=== PATIENT | male | born 1955 | race Caucasian/White ===

== ENCOUNTER 2023-08-25 11:18 | Emergency (ER) | payer MEDICARE, SELFPAY ==
[2023-08-25 11:28] VITALS: BP 136/73
--- NOTE | 2023-08-25 12:38 | ED.GENMED ---
History of Present Illness
General
Chief Complaint: Musculo-Skeletal Complaint
Source: patient
Exam Limitations: none
Time Seen by Provider: 08/25/23 12:09
Travel History
Have you had any contact with someone who has COVID-19?: No
Do you have any symptoms of coronavirus? Fever > 100 degrees, chills, cough, shortness of breath, sore throat, loss of taste or smell, muscle aches, or headache?: No
History of Present Illness
History of Present Illness:
Patient hit his anterior chest yesterday evening. Also stubbed his toe but is not want his toe evaluated. Some pain with breathing. No shortness of breath no neck pain no head injury no other complaints
Past History
Past History
ED Past Medical History: Hypercholesterolemia
ED Past Surgical History: None
Patient has exhibited threatening behavior?: No
Social History
Tobacco: Non-smoker
Living: with family
Employment: Employed
Phy Exam
Physical Exam
Physical Exam:
TRAUMA EXAM:
VITAL SIGNS: Vital signs reviewed, cooperative
DISTRESS: No active disease
FACE AND SCALP: No scalp or facial trauma
NECK: Supple nontender
RESPIRATORY: No distress, breath sounds normal, tenderness left anterior mid chest wall. No crepitus no ecchymosis
CARDIAC: No murmur, pulses equal and strong
ABDOMEN: Soft nontender
SKIN: Skin intact
NEUROLOGICAL: Alert, oriented, no motor deficits
PSYCH: Mood affect normal
Course
Orders/Labs/Results
Orders:
Orders
08/25/23 11:37
Chest [CR Chest - 2 Views ] Urgent
Comment:
Reason For Exam: pain injury
Vital Signs
Initial and Last Documented VS:
Initial Vital Signs
Temp Pulse Resp BP Pulse Ox
98.0 F 53 16 136/73 96
08/25/23 11:28 08/25/23 11:28 08/25/23 11:28 08/25/23 11:28 08/25/23 11:28
Last Documented Vital Signs
Temp Pulse Resp BP Pulse Ox
98.0 F 53 16 136/73 96
08/25/23 11:28 08/25/23 11:28 08/25/23 11:28 08/25/23 11:28 08/25/23 11:28
*Radiology
Radiology exam reviewed: radiology read reviewed (Negative)
*Pulse Oximetry
Patient hypoxic: no
*Critical Care Note
Total Time (30-74mins, 75-104mins- exclusive of procedures): Not Applicable
Update Note
Update Note:
Discussed rib series versus chest x-ray. Offered rib series although would not blade changer. Patient is comfortable with holding on this test.
ED Attending Note
-
Portions of this chart may have been created with voice recognition software.� Occasional wrong word or��sound alike� substitutions may have occurred due to the inherent limitations of voice recognition software.
Discharge Plan
Departure
Patient Disposition: Home (Routine Discharge)
Date of Disposition: 08/25/23
Time of Disposition: 12:42
Patient with high blood pressure during this ER visit?: Yes
Discharge Problem:
Blunt chest trauma
Instructions: Blunt Chest Trauma (DC), BLOOD PRESSURE
Prescriptions:
No Action
aspirin 325 MG tablet
325 mg PO DAILY
escitalopram oxalate [Lexapro] 10 mg Tablet
10 mg PO DAILY
atorvastatin 20 mg Tablet
20 mg PO DAILY
famotidine 20 mg Tablet
20 mg PO HS
lorazepam 0.5 mg Tablet
0.5 mg PO TID PRN (Reason: Anxiety)
zolpidem [Ambien] 10 mg Tablet
10 mg PO HS
Referrals:
Robbie Valdez MD [Family Provider] - Follow up in 2-3 days
Interventions
Interventions:
*Risk Screen - Suicide Last Done: 08/25/23 13:23
*General Assessment Last Done: 08/25/23 13:23
*Neglect/Abuse Screening Last Done: 08/25/23 13:23
ED- Fall Risk Assessment Last Done: 08/25/23 13:23
*ED COVID-19 Vaccine History Last Done: 08/25/23 11:28
*Nursing Disposition Last Done: 08/25/23 13:21
ED-Musculoskeletal Assessment Last Done: 08/25/23 12:21
Discharge Date and Time
Discharge Date/Time: 08/25/23 13:24
Print Language: DIVEHI
== END 2023-08-25 13:24 | disposition home or self-care (01) ==
LOC: EMR 11:18
PROVIDERS: EMERGENCY PHYSICIAN Emergency Medicine; FAMILY PHYSICIAN Internal Medicine
DX: S29.9XXA Unspecified injury of thorax, initial encounter (principal); X58.XXXA Exposure to other specified factors, initial encounter; E78.00 Pure hypercholesterolemia, unspecified
CPT/HCPCS: 99283; 71046

== ENCOUNTER → 2024-03-31 15:52 | Outpatient (REF) | payer MEDICARE, SELFPAY | LOC: PAVMRI 15:52 | PROVIDERS: ATTENDING PHYSICIAN Physician Assistant Surgical; FAMILY PHYSICIAN Nurse Practitioner Adult Health | DX: M25.512 Pain in left shoulder (principal) | CPT/HCPCS: 73221 ==